=== PATIENT | female | born 1990 | race Caucasian/White ===

== ENCOUNTER 2021-12-14 15:41 | Emergency (ER) | payer OTHER ==
[~2021-12-14] VITALS: Ht 160 cm; Wt 40.0 kg
[~2021-12-14 15:41] MED LIST: MEDDOSEPAK OR; NO HOME MEDS; PRENATA8 PO; PROCARDIA10 MG; SILVADENE1 % EX; ZITHROMAX250 MG PO
[2021-12-14 16:10] LABS: HEMATOCRIT 40.1 % (37.0-47.0); HEMOGLOBIN 13.3 g/dl (12.0-16.0); IMMATURE GRANULOCYTES 0.3 % (0.0-5.0); MEAN CORPUSCULAR HGB 32.8 pG CALC (26.0-32.0); MEAN CORPUSCULAR HGB CONC 33.2 g/dL CAL (32.0-36.0); NEUT# 12.46 thou/uL (2.00-7.15); RED BLOOD COUNT 4.06 mill/uL (4.20-5.60)
[2021-12-14 16:12] LABS: MEAN CELL VOLUME 98.8 fL CALC (80.0-100.0)
[2021-12-14 16:12] LABS: URINE BILIRUBIN - DIPSTICK NEGATIVE (NEGATIVE); URINE BLOOD DIPSTICK MODERATE (NEGATIVE); URINE COLOR YELLOW; URINE GLUCOSE - DIPSTICK NEGATIVE (NEGATIVE); URINE KETONE 15 mg/dL (NEGATIVE); URINE LEUK ESTERASE NEGATIVE (NEGATIVE); URINE PROTEIN - DIPSTICK 30 mg/dL (NEG-TRACE); URINE SPECIFIC GRAVITY >=1.030; URINE UROBILINOGEN - DIPSTICK 0.2 E.U./dL (0.2)
[2021-12-14 16:15] LABS: URINE NITRITE - DIPSTICK NEGATIVE (Negative)
[2021-12-14 16:17] LABS: URINE SQUAMOUS EPITHELIAL CELL FEW EPI/hpf (0-FEW); URINE WBC 0-2 WBC/hpf (0-5)
[2021-12-14 16:20] LABS: ALBUMIN 4.7 g/dL (3.2-5.0); ALKALINE PHOSPHATASE 65 u/l (38-126); BILIRUBIN, TOTAL 1.1 mg/dL (0.0-1.4); BUN 9 mg/dL (7-17); BUN/CREATININE RATIO 13 (12-20 (CALC)); CHLORIDE 102 mmol/l (95-108); CREATININE 0.7 mg/dL (0.5-1.0); GFR > 60 ML/MIN (>=60 (CALC)); GFR FOR AFR.AMER. > 60 ML/MIN (>=60 (CALC)); MAGNESIUM 1.7 mg/dL (1.6-2.3); POTASSIUM 3.3 mmol/l (3.5-5.1); SODIUM 137 mmol/l (137-146); TOTAL PROTEIN 7.4 g/dL (6.3-8.2)
[2021-12-14 16:23] LABS: ANION GAP 20 (6-22 (CALC)); CARBON DIOXIDE 18 mmol/l (22-30); SGOT/AST 39 u/l (14-36)
[2021-12-14 16:37] LABS: BETA-HCG, QUANT(RESULT NUMBER) <2 mIU/mL
[2021-12-14 16:50] LABS: TSH, 3RD GENERATION 1.75 uIU/mL (0.47 - 4.68)
[2021-12-14 21:00] VITALS: BP 90/48
== END 2021-12-14 21:15 ==
LOC: ED 15:41
PROVIDERS: Emergency Medicine
DX: F30.2 Manic episode, severe with psychotic symptoms (principal); F12.921 Cannabis use, unspecified with intoxication delirium; Z20.822 Contact with and (suspected) exposure to COVID-19

== ENCOUNTER 2022-01-22 05:30 | Emergency (ER) | payer OTHER ==
[~2022-01-22] VITALS: Ht 160 cm; Wt 50.0 kg
[2022-01-22 06:06] LABS: HEMATOCRIT 39.9 % (37.0-47.0); HEMOGLOBIN 13.1 g/dl (12.0-16.0); IMMATURE GRANULOCYTES 0.3 % (0.0-5.0); MEAN CELL VOLUME 98.3 fL CALC (80.0-100.0); MEAN CORPUSCULAR HGB 32.3 pG CALC (26.0-32.0); MEAN CORPUSCULAR HGB CONC 32.8 g/dL CAL (32.0-36.0); NEUT# 5.84 thou/uL (2.00-7.15); RED BLOOD COUNT 4.06 mill/uL (4.20-5.60); RED CELL DISTRI WIDTH 12.2 % (11.5-15.5)
[2022-01-22 06:21] LABS: ALBUMIN 4.3 g/dL (3.2-5.0); ALKALINE PHOSPHATASE 70 u/l (38-126); ANION GAP 17 (6-22 (CALC)); BUN 11 mg/dL (7-17); BUN/CREATININE RATIO 15 (12-20 (CALC)); CARBON DIOXIDE 17 mmol/l (22-30); CHLORIDE 105 mmol/l (95-108); CREATININE 0.7 mg/dL (0.5-1.0); ETHYL ALCOHOL 0 mg/dl (0-30); GFR > 60 ML/MIN (>=60 (CALC)); GFR FOR AFR.AMER. > 60 ML/MIN (>=60 (CALC)); POTASSIUM 2.8 mmol/l (3.5-5.1); SGOT/AST 24 u/l (14-36); SODIUM 137 mmol/l (137-146)
[2022-01-22 09:21] LABS: URINE BILIRUBIN - DIPSTICK NEGATIVE (NEGATIVE); URINE BLOOD DIPSTICK NEGATIVE (NEGATIVE); URINE COLOR YELLOW; URINE GLUCOSE - DIPSTICK NEGATIVE (NEGATIVE); URINE KETONE 15 mg/dL (NEGATIVE); URINE LEUK ESTERASE NEGATIVE (NEGATIVE); URINE PROTEIN - DIPSTICK TRACE mg/dL (NEG-TRACE); URINE UROBILINOGEN - DIPSTICK 0.2 E.U./dL (0.2)
[2022-01-22 09:24] LABS: URINE NITRITE - DIPSTICK NEGATIVE (Negative)
[2022-01-22 18:34] VITALS: BP 104/76
== END 2022-01-22 18:35 ==
LOC: ED 05:30
PROVIDERS: Family Medicine
DX: F29 Unspecified psychosis not due to a substance or known physiological condition (principal); E87.6 Hypokalemia; Z20.822 Contact with and (suspected) exposure to COVID-19
CPT/HCPCS: S0166